=== PATIENT | male | born 1960 | race Caucasian/White ===

== ENCOUNTER 2016-09-18 09:56 | Emergency (ER) | payer OTHER ==
[~2016-09-18] VITALS: Ht 170.2 cm; Wt 84.5 kg
[~2016-09-18 09:56] MED LIST: ASPIRIN500 MG PO; BUSPAR10 MG PO; DULOXETINE HCL30 MG PO; LISINOPRIL20 MG PO; MEDROL DOSEPAK4 MG PO; METHADONE 22 MG/1 ML PO; METHADONE1 MG/1 ML PO; METHADONE10 MG PO; NEURONTIN600 MG PO; SPIRIVA1 INHALATI IH; VENTOLIN HFA18 GM IH; ZITHROMAX Z-PA250 MG PO
[2016-09-18] MEDS ORDERED: KEFLEX500 MG PO (11:57)
[2016-09-18 12:05] VITALS: BP 162/96
== END 2016-09-18 12:07 | disposition home or self-care (01) ==
LOC: EME 09:56
DX: L03.012 Cellulitis of left finger (principal); F17.200 Nicotine dependence, unspecified, uncomplicated; Z88.0 Allergy status to penicillin; J44.9 Chronic obstructive pulmonary disease, unspecified
CPT/HCPCS: 73140; 99281; 99284

== ENCOUNTER 2016-10-11 04:47 | Emergency (ER) | payer OTHER ==
[~2016-10-11] VITALS: Ht 170.2 cm; Wt 76.8 kg
[~2016-10-11 04:47] MED LIST changes: +KEFLEX500 MG PO
[2016-10-11 05:31] LABS: MCH 32.6 PG (29.0-34.0); MCV 95.7 FL (86-99); MEAN PLAT.VOLUME 10.3 uM^3 (9.0-12.4); PLATELET COUNT 146 K/uL (156-360); RBC DIS.WIDTH-CV 13.6 % (11.8-14.6); RBC DIS.WIDTH-SD 45.5 % (39-53); RED BLOOD COUNT 4.39 M/uL (4.00-5.50); WHITE BLOOD COUNT 15.4 K/uL (4.1-10.2)
[2016-10-11 05:39] LABS: CHLORIDE 105 mEq/L (99-109); POTASSIUM 4.2 mEq/L (3.7-5.4); SODIUM 140 mEq/L (136-147)
[2016-10-11 05:40] LABS: GLUCOSE 68 mg/dL (70-99)
[2016-10-11 05:42] LABS: ANION GAP 16 MEQ/L (2-14)
[2016-10-11 05:43] LABS: SERUM ETHYL ALCOHOL 100 mg/dL
[2016-10-11 05:44] LABS: GFR ESTIMATE (CALCULATED) > 59 mL/min/
[2016-10-11 05:46] LABS: UREA NITROGEN (BUN) 26 mg/dL (9-23)
[2016-10-11 05:47] LABS: SALICYLATE < 5.0 MG/DL (15-30)
[2016-10-11 06:04] LABS: ADD MEDTOX COMMENT Y; AMPHETAMINE NEGATIVE (500 ng/mL); BARBITURATES NEGATIVE (200 ng/mL); BENZODIAZEPINES NEGATIVE (150 ng/mL); COCAINE PRESUMPTIVE POSITIVE (150 ng/mL); INTERNAL CONTROLS VALID? YES; METHADONE NEGATIVE (200 ng/mL); METHAMPHETAMINE NEGATIVE (500 ng/mL); OPIATES (MORPHINE) PRESUMPTIVE POSITIVE (100 ng/mL); OXYCODONE NEGATIVE (100 ng/mL); PHENCYCLIDINE NEGATIVE (25 ng/mL); PROPOXYPHENE NEGATIVE (300 ng/mL); THC CANNABINOIDS NEGATIVE (50 ng/mL); TRICYCLIC ANTIDEPRESSANTS NEGATIVE (300 ng/mL)
[2016-10-11] MEDS ORDERED: NARCAN4 MG NS (06:19)
[2016-10-11 07:04] VITALS: BP 124/63
== END 2016-10-11 07:20 | disposition home or self-care (01) ==
LOC: EME → EDBD 04:47 → EME 04:47
PROVIDERS: Emergency Medicine
DX: T40.1X1A Poisoning by heroin, accidental (unintentional), initial encounter (principal); F10.129 Alcohol abuse with intoxication, unspecified; S00.81XA Abrasion of other part of head, initial encounter; X58.XXXA Exposure to other specified factors, initial encounter; F14.10 Cocaine abuse, uncomplicated; R00.0 Tachycardia, unspecified; R07.89 Other chest pain; R11.0 Nausea; Y90.5 Blood alcohol level of 100-119 mg/100 ml; J44.9 Chronic obstructive pulmonary disease, unspecified
CPT/HCPCS: 71010; 80048; 84999; 85027; 93005; 99281; 99285; G0480; J7030

== ENCOUNTER 2016-10-19 15:16 | Emergency (ER) | payer OTHER ==
[~2016-10-19] VITALS: Ht 170.2 cm; Wt 79.7 kg
[~2016-10-19 15:16] MED LIST changes: +NARCAN4 MG NS
[2016-10-19 22:20] VITALS: BP 133/76
== END 2016-10-19 22:21 | disposition home or self-care (01) ==
LOC: EME → EDBD 15:16 → EME 22:21
DX: F10.129 Alcohol abuse with intoxication, unspecified (principal); J44.9 Chronic obstructive pulmonary disease, unspecified; E78.5 Hyperlipidemia, unspecified; I10 Essential (primary) hypertension; Z78.1 Physical restraint status
CPT/HCPCS: 99281; 99285; J1630; J2060; J7030

== ENCOUNTER 2016-10-22 17:28 | Emergency (ER) | payer OTHER ==
[~2016-10-22] VITALS: Ht 177.8 cm; Wt 79.0 kg
[2016-10-22 18:20] LABS: HEMATOCRIT 41.1 % (38.0-50.0); MCH 32.6 PG (29.0-34.0); MCHC 34.5 G/DL (30.0-36.0); MCV 94.3 FL (86-99); MEAN PLAT.VOLUME 9.8 uM^3 (9.0-12.4); PLATELET COUNT 178 K/uL (156-360); RBC DIS.WIDTH-CV 13.2 % (11.8-14.6); RBC DIS.WIDTH-SD 45.2 % (39-53); RED BLOOD COUNT 4.36 M/uL (4.00-5.50); WHITE BLOOD COUNT 12.1 K/uL (4.1-10.2)
[2016-10-22 18:31] LABS: CHLORIDE 106 mEq/L (99-109); POTASSIUM 3.8 mEq/L (3.7-5.4); SODIUM 143 mEq/L (136-147)
[2016-10-22 18:33] LABS: GLUCOSE 96 mg/dL (70-99)
[2016-10-22 18:34] LABS: ANION GAP 13 MEQ/L (2-14)
[2016-10-22 18:36] LABS: SERUM ETHYL ALCOHOL 245 mg/dL
[2016-10-22 18:37] LABS: GFR ESTIMATE (CALCULATED) > 59 mL/min/
[2016-10-22 18:38] LABS: UREA NITROGEN (BUN) 9 mg/dL (9-23)
[2016-10-22 20:43] VITALS: BP 144/101
== END 2016-10-22 20:44 | disposition home or self-care (01) ==
LOC: EME 17:28
PROVIDERS: Emergency Medicine
DX: F10.129 Alcohol abuse with intoxication, unspecified (principal); J44.9 Chronic obstructive pulmonary disease, unspecified; E78.5 Hyperlipidemia, unspecified; I10 Essential (primary) hypertension; F17.200 Nicotine dependence, unspecified, uncomplicated; Z59.0 Homelessness; Z87.442 Personal history of urinary calculi
CPT/HCPCS: 70450; 80048; 85027; 99281; 99283; G0480